=== PATIENT | male | born 1960 | race Caucasian/White ===

== ENCOUNTER 2020-07-12 13:46 | Inpatient (IN) | payer OTHER ==
[~2020-07-12] VITALS: Ht 180.3 cm; Wt 103.9 kg
[~2020-07-12 13:46] MED LIST: ACETAMINOPHEN500 MG PO; ALBUTEROL2.5 MG/31 INH; ASA81BEC PO; BIOTENE ORALBAL42 G1 PO; BUPROPION HCL200 MG PO; COMBIVENT RESPIM4 GM INH; COZAAR 25 MG TA25 M2 PO; CRESTOR5 MG PO; FAMOTIDINE20 MG PO; FLEXERIL PO; FLONASE 0.05%50 MCG NARES; GLUCOPHAGE1000 MG PO; HYDROCHLOROTHIA25 M2 PO; HYDROXYZINE PAM25 M1 PO; JARDIANCE25 MG PO; LIDODERM1 EACH TOP; LOPRESSOR50 MG PO; MELATONIN3 M1 PO; MELOXICAM15 MG PO; MINIPRESS2 MG PO; NEURONTIN 300M300 M2 PO; NICOTINE LOZENGE4 MG PO; OMEPRAZOLE 20 M20 M1 PO; REFRESH CLASSI1 EACH OPHTHALMIC; SALINE NASAL SP88 ML NASAL; TRAMADOL 50 MG50 MG PO; VICTOZA0.6 MG/0.1 SUBQ; VITAMIN D325 MC3 PO; VOLTAREN GEL 1100 G1 TOP; ZYRTEC10 M5 PO; [UNRECOGNIZED DRUG - OTHER] PO
[2020-07-15] MEDS ORDERED: FLEXERIL PO (11:26)
[2020-07-21 13:40] LABS: URINE BILIRUBIN NEGATIVE (Negative); URINE BLOOD NEGATIVE (Negative); URINE CLARITY CLEAR; URINE COLOR YELLOW; URINE GLUCOSE-RANDOM* 3+ (Negative); URINE KETONES NEGATIVE (Negative); URINE LEUKOCYTES-REFLEX NEGATIVE (Negative); URINE NITRITE-REFLEX NEGATIVE (Negative); URINE PROTEIN (DIPSTICK) NEGATIVE (Negative); URINE UROBILINOGEN 0.2 E.U./dl (0.2-1.0)
[2020-07-21 13:45] LABS: EOSINOPHILS 0.9 % (0.0-3.0); HEMATOCRIT 43.3 % (42.0-52.0); HEMOGLOBIN 13.6 gm/dL (14.0-18.0); LYMPHOCYTES 20.9 % (24.0-44.0); MCH 25.3 pg (26.0-34.0); MCHC 31.5 g/dL (28.0-37.0); MCV 80.4 fL (80.0-100.0); PLATELET COUNT 582 thou/uL (150-400); POLYS 69.2 % (36.0-66.0); RBC 5.39 mil/uL (4.50-6.00); RDW 15.3 % (10.5-14.5); WBC 11.5 thou/uL (4.0-11.0)
[2020-07-21 13:54] LABS: ALBUMIN 4.1 g/dL (3.4-5.0); APTT 28.3 Seconds (24.5-32.8); CALCIUM 9.7 mg/dL (8.5-10.1); CREATININE 1.1 mg/dL (0.7-1.3); MAGNESIUM 1.9 mg/dL (1.8-2.4); POTASSIUM 4.1 mmol/L (3.5-5.1); PROTIME 10.2 Seconds (9.3-11.4); TOTAL BILIRUBIN 0.4 mg/dL (0.2-1.0); TOTAL PROTEIN 7.8 g/dL (6.4-8.2)
--- NOTE | 2020-07-21 15:35 | EKG ---
[facility] [place] [address] ELECTROCARDIOGRAM REPORT Name: SELIN PAULINO Room #: PRE IN ..#: [id number] Admission: Attend Phys: Ubaldo Alas MD Discharge: Date of : 56 Report #: [id number] THIS REPORT FOR: cc: CELESTE KLINE Physician not on staff Ja Lao MD [facility] ~ THIS REPORT FOR: //name// [facility] Test Date: 2020-07-21 Test Time: 13:32:32 Pat Name: SELIN PAULINO Department: Room: Gender: Financial Secretary: Shannon HILL : 1960 Requested By: Ubaldo Alas Order Number: [id number] MD: Ja Lao Measurements Intervals [place] Rate: 70 P: 54 MS: 169 QRS: -66 QRSD: 150 T: 39 QT: 422 QTc: 456 Interpretive Statements Sinus rhythm RBBB and LAFB No previous ECG available for comparison Electronically Signed On 07-21-2020 15:35:42 CDT by Ja Lao [email or web address] <ELECTRONICALLY SIGNED> By: Ja Lao MD, FACC 07/21/20 153 31 31 Ja Lao MD, FAC /EPI
[2020-07-22 05:12] LABS: GLYCOHEMOGLOBIN (HGB A1C) 7.7 % (4.8-5.6)
[2020-07-26 07:32] VITALS: BP 125/65
--- NOTE | 2020-07-26 18:50 | NUR ---
assumed care at 1400. pt is a&o x4. pt complains of right foot pain, both back pain, and right eye. Currently we are working on getting his medication. We gave him medication for right eye pain and apply cold wash cloth to his right eye. He felt better. he is on bedrest. fall precaution. call light within reach. he denies any soa. he is pleasant. his breathing is diminished and clear.
--- NOTE | 2020-07-26 19:15 | NUR ---
PATIENT ADMITTED FROM OR WITH LUMBAR FUSION, PATIENT ON BEDREST. PATIENT HAS AQUACEL DRESSING TO LOWBACK AREA. PATIENT HAS POCKET CREASER PUMP STARTED WITH HYDROMORPHONE.
[2020-07-26 20:04] VITALS: BP 153/68
[2020-07-27 00:10] VITALS: BP 109/58
--- NOTE | 2020-07-27 03:58 | NUR ---
SUMAN AT START OF SHIFT 1900. PT A&OX4. RATES PAIN 6/10 AND ON A PROFESSIONAL ATHLETES COACH PUMP AND CAPNEA MONITOR. ON 3L OF 02. EVENING MEDS GIVEN. CALLED PHARMACY TO VERIFY SOME MEDS DUE TO EMAR SET UP. URINAL AT BEDSIDE AND PT VOIDS WELL. SCD'S, TEDHOSE IN PLACE. IV INTACT WITH FLUIDS INFUSING. BSG CHECKED, NO COVERAGE. FALL PREC IN PLACE AND CALL LIGHT IN REACH WILL CONT WITH POC TILL EOS.
[2020-07-27 06:18] LABS: ABSOLUTE NEUTROPHILS 9.9 thou/uL (1.4-8.2); BASOPHILS 0.1 % (0.0-2.0); HEMATOCRIT 38.5 % (42.0-52.0); HEMOGLOBIN 11.7 gm/dL (14.0-18.0); MCH 24.8 pg (26.0-34.0); MCHC 30.5 g/dL (28.0-37.0); MCV 81.4 fL (80.0-100.0); MONOCYTES 11.2 % (1.0-8.0); PLATELET COUNT 379 thou/uL (150-400); POLYS 77.7 % (36.0-66.0); RBC 4.73 mil/uL (4.50-6.00); WBC 12.8 thou/uL (4.0-11.0)
[2020-07-27 06:35] LABS: CALCIUM 9.2 mg/dL (8.5-10.1); CREATININE 1.2 mg/dL (0.7-1.3); POTASSIUM 4.4 mmol/L (3.5-5.1)
[2020-07-27 07:30] VITALS: BP 127/78
--- NOTE | 2020-07-27 09:52 | NUR ---
ASSESSMENT: CM REVIEWED CHART AND SPOKE WITH PT. PT IS ALERT AND ORIENTED X4. PT IS HERE S/P LUMBAR FUSION. PT LIVES IN A MOBILE HOME ON A [place]ARM WITH HIS . PT REPORTS HAVING ABOUT 4 STEPS TO ENTER THE MOBILE HOME WITH HANDRAILS. PT REPORTS THAT HE HAS A WALKER, CANE, AND CRUTCHES AT HOME. PT REPORTS THAT HE ALSO HAS A CPAP. PHYSICAL THERAPY IS WORKING WITH PATIENT AND RECOMMENDING [facility] ONCE DISCHARGED. PT WILL CONTINUE TO WORK WITH THERAPY. CM WILL CONTINUE TO FOLLOW TO ASSIST NEEDED.
--- NOTE | 2020-07-27 16:27 | NUR ---
PT IS AOX4, VSS, PAIN CONTROLLED WITH ORAL AND IV PAIN ANALGESIC. PT IV IS PATENT IN RIGHT HAND WITH FLUIDS RUNNING. PT HAS SIXTO ARANDA, SCD, DRESSING CDI. PT USING URINAL, NO BM BUT PASSING GAS. DENIES N/V, FALL PRECAUTIONS IN PLACE. WILL CONTINUE TO MONITOR.
[2020-07-27 16:30] VITALS: BP 135/58
[2020-07-27 19:21] VITALS: BP 151/85
[2020-07-27 23:39] VITALS: BP 157/135
--- NOTE | 2020-07-28 02:32 | NUR ---
ASSESSED AT START OF SHIFT 1899. PT A&OX4. C/O PAIN AND HICCUPS. MEDS GIVEN SEE EMAR. PT HAD A HUGE BM THIS SHIFT. OLD IV WENT BAD. NEW IV 22G INSERTED IN RT FA. IV FLUIDS INFUSING. TYLENOL GIVEN FOR TEMP. PT UP WITH ASSIST WITH WALKER. AQUACEL DRESSING IN LOWER BACK WITH MINIMAL DRAINAGE. FALL PREC IN PLACE CALL LIGHT IN REACH WILL CONT TO MONITOR.
[2020-07-28 02:51] LABS: URINE CLARITY CLEAR; URINE COLOR YELLOW; URINE SPECIFIC GRAVITY 1.015 (1.005-1.035)
[2020-07-28 02:52] LABS: URINE BILIRUBIN NEGATIVE (Negative); URINE BLOOD NEGATIVE (Negative); URINE GLUCOSE-RANDOM* 3+ (Negative); URINE KETONES NEGATIVE (Negative); URINE LEUKOCYTES NEGATIVE (Negative); URINE NITRITE NEGATIVE (Negative); URINE PROTEIN (DIPSTICK) NEGATIVE (Negative); URINE UROBILINOGEN 0.2 E.U./dl (0.2-1.0)
[2020-07-28 03:47] VITALS: BP 131/46
[2020-07-28 07:30] VITALS: BP 159/92
[2020-07-28 09:17] LABS: HEMATOCRIT 31.8 % (42.0-52.0); HEMOGLOBIN 10.2 gm/dL (14.0-18.0); MCH 25.7 pg (26.0-34.0); MCV 80.3 fL (80.0-100.0); RBC 3.96 mil/uL (4.50-6.00); RDW 15.6 % (10.5-14.5); WBC 9.5 thou/uL (4.0-11.0)
[2020-07-28 09:27] LABS: CALCIUM 8.9 mg/dL (8.5-10.1); MAGNESIUM 1.7 mg/dL (1.8-2.4); POTASSIUM 4.2 mmol/L (3.5-5.1)
[2020-07-28 14:53] VITALS: BP 139/62
--- NOTE | 2020-07-28 15:43 | NUR ---
ON-GOING ASSESSMENT: CM REVIEWED CHART. PT IS PROGRESSING TOWARDS DISCHARGE GOALS. PLANS ON POSSIBLE DISCHARGE TOMORROW AM IF PT REMAINS AFEBRILE. CM WILL CONTINUE TO FOLLOW TO ASSIST NEEDED.
--- NOTE | 2020-07-28 17:53 | NUR ---
PT IS AOX4, VSS, PAIN CONTROLLED WITH ORAL ANALGESIC ORDERED. PT DRESSING WAS CHANGED ON BACK/CDI AT THIS TIME. PT UP TO RECLINER, WORKING WITH PT/OT WELL. APPETITE IS FAIR, NO N/V NOTED. FALL PRECAUTIONS IN PLACE, CALLS APPROPRIATELY. IV PATENT WITH FLUIDS, WILL CONTINUE TO MONITOR.
[2020-07-28 20:13] VITALS: BP 144/78
--- NOTE | 2020-07-29 02:50 | NUR ---
ASSESSED AT START OF SHIFT. PT A&OX4. TRAMADOL GIVEN FOR PAIN. PT UP WITH SBA TO THE BATHROOM. NO FEVER THIS SHIFT. ANTICIPATING D/C TOMORROW. IV INTACT AND SL OPHELIA PO FLUIDS. LOWER BACK DRESSING CHANGED. C/D/I. THORAZINE GIVEN FOR HICCUPS. PT RESTING WELL. FALL PREC IN PLACE AND CALL LIGHT IN REACH YEIMY CONT TO MONITOR.
[2020-07-29 04:10] VITALS: BP 105/81
[2020-07-29 05:39] LABS: HEMATOCRIT 34.5 % (42.0-52.0); HEMOGLOBIN 10.7 gm/dL (14.0-18.0); MCH 25.2 pg (26.0-34.0); MCHC 31.1 g/dL (28.0-37.0); MCV 81.1 fL (80.0-100.0); RBC 4.26 mil/uL (4.50-6.00); RDW 15.9 % (10.5-14.5); WBC 9.7 thou/uL (4.0-11.0)
[2020-07-29 05:44] LABS: CALCIUM 9.4 mg/dL (8.5-10.1); CREATININE 0.9 mg/dL (0.7-1.3); POTASSIUM 3.9 mmol/L (3.5-5.1)
--- NOTE | 2020-07-29 07:19 | NUR ---
ASSUMED CARE OF PATIENT. HE IS ASLEEP WEARS C-PAP AT NIGHT. NO PAIN OR RESP DISTRESS.
[2020-07-29 07:28] VITALS: BP 135/71
[2020-07-29 13:08] VITALS: BP 135/71
[2020-07-29 13:20] VITALS: BP 142/84
--- NOTE | 2020-07-29 14:36 | NUR ---
ON-GOING ASSESSMENT: CM REVIEWED CHART AND SPOKE WITH ATTENDING. PT IS STABLE TO DISCHARGE HOME TODAY WITH HOME HEALTH. CM MET WITH PATIENT AND HE HAS NO PREFERENCE OF AGENCY AND STATES WE JUST NEED TO GET APPROVAL FROM THE [facility]. CM REACHED OUT TO [facility] [phone] AND REFERRAL WAS SENT TO [facility] IN [place], [place]. CM RECEIVED A CALL BACK FROM PRAKASH AT [facility] WHO REPORTS THEY CAN ACCEPT PT JUST NEED APPROVAL FROM THE [facility]. CM NOTIFIED HER THAT CM SPOKE WITH THE [facility] AND THEY HAVE AUTHORIZED THIS AND ARE GOING TO CONTACT HER TO CONFIRM THE AUTHORIZATION. CM FAXED [facility] THE DISCHARGE ORDERS AND CONFIRMED THEY RECEIVED THEM. CM ALSO NOTIFIED THE [facility] THAT PATIENT IS REQUESTING A STOOL RISER AND THEY REPORT THAT HAS TO GO THROUGH THEIR [employer] AND THEY ARE PUTTING IN A REFERRAL/REQUEST FOR THAT AND WILL FOLLOW UP WITH THE PT. CM NOTIFIED [facility] THAT PT PLANS ON STAYING AND HIS IN-LAWS FOR 1-2 WEEKS SINCE IT IS SENIOR FRIENDLY INCLUDING NO STEPS AND HAS GRAB BARS AT [address] [id number]. CM NOTIFIED PT THAT [facility] WOULD BE CONTACTING HIM. PT REPORTS NO FURTHER NEEDS FROM AT THIS TIME. CASE CLOSED.
--- NOTE | 2020-07-29 14:56 | NUR ---
PT ARRIVED ON UNIT AT 1320 PT CRYING AND MOANING STATES IM HUNGRY GAVE FOOD AFTER DIET CHANGED AND DINNER ORDERED. V.S 97.8 18 82 142/84 O2 SAT= 99 % RA. GIVEN PO AND IV PRN PAIN MEDS.ADMISSION PAPERWORK DONE WITH PATIENT IN THE COMPUTER.
[2020-07-29 15:33] VITALS: BP 135/71
[2020-07-29 18:00] VITALS: BP 135/71
--- NOTE | 2020-07-29 18:05 | NUR ---
DISCHARGE PAPERS REVIEWED WITH PATIENT AND HIS SPOUSE SIGNED AND COPY IN CHART IV ACSESS DCD. RX AND WOUND SUPPLIES SENT WITH PATIENT. PT WAS GIVEN LOMOTIL GIVEN XS1 THEN 30 MIN AFTER 1ST DOSE PER [facility] ORDERS. GIVEN PRN PAIN MED REQUESTED TAKEN VIA W/C TO [facility]ILY [facility]. ALL BELONGINGS TAKEN WITH PATIENT.
--- NOTE | 2020-07-31 06:48 | O ---
[facility] [place] [address] OPERATIVE REPORT Name: ESLIN PAULINO Room #: 437-P [facility] IN M.R.#: [id number] Admission: 07/26/20 Attend Phys: Ubaldo Alas MD Discharge: 07/29/20 Date of : 56 Report #: [id number] THIS REPORT FOR: cc: CELESTE KLINE Physician not on staff Ubaldo Alas MD ~ CC: Ubaldo Alas Physician staff CELESTE KLINE DATE OF SERVICE: 07/26/2020 IDENTIFYING DATA: He is a 60-year-old male. PREPROCEDURAL DIAGNOSES: Degenerative disk disease, L3-L4 spinal stenosis; L4-L5 severe spinal stenosis; L4-L5 spondylolisthesis; L4-L5 instability; L5-S1 neural foraminal stenosis, radiculopathy. Neurogenic claudication of the spinal nerve roots. Low back pain. POSTPROCEDURAL DIAGNOSIS: Degenerative disk disease, L3-L4 spinal stenosis; L4-L5 severe spinal stenosis; L4-L5 spondylolisthesis; L4-L5 instability; L5-S1 neural foraminal stenosis, radiculopathy. Neurogenic claudication of the spinal nerve roots. Low back pain. PROCEDURE PERFORMED: Posterior instrumentation, L4-L5; transforaminal lumbar interbody fusion, L4-L5; L4-L5 insertion of interbody prosthesis; bilateral laminectomy with partial facetectomy and neural foraminotomy L3; bilateral laminectomy with partial facetectomy and neural foraminotomy L4; bilateral laminectomy with partial facetectomy and neural foraminotomy L5; bilateral laminectomy with partial facetectomy and neural foraminotomy S1; autograft local bone graft harvest; synthetic/allograft bone for posterolateral fusion. Fluoroscopy time less than 1 hour. SURGEON: Ubaldo Alas MD PLANT ENGINEERING MANAGER SURGEON: Sarah Kingsley. ANESTHESIA: General via endotracheal tube. INDICATIONS FOR PROCEDURE: The patient has had intractable back and bilateral leg pain. It is in a neurogenic claudicant and radicular pattern. He has proved refractory to all forms of multimodality conservative management. In addition to the three level stenosis L3-L4, L4-L5 and L5-S1, he has a mobile spondylolisthesis at L4-L5. The patient has proved refractory to all forms of multimodality conservative managements requesting we proceed with operative intervention. [address] [address] OPERATIVE REPORT Name: SELIN PAULINO Room #: 437-P DIS IN ..#: [id number] Admission: 07/26/20 Attend Phys: Ubaldo Alas MD Discharge: 07/29/20 Date of : 56 Report #: [id number] The patient understands the risks of surgery to be , DVT, pulmonary embolism, paraplegia, loss of bowel and bladder function, loss of sexual function, possibility of bleeding, bleeding requiring transfusion, transfusion attendant risks of AIDS and hepatitis infection, dural leak, spinal headache, and again he understood the chance of adjacent level breakdown to the L4-L5 level. DESCRIPTION OF PROCEDURE: The patient was brought to the operating room and administered general anesthesia via endotracheal tube. Lower extremities were treated with SIXTO hose and intermittent compression stockings. The patient was positioned on the Jon table in the prone position with all bony prominences were padded appropriately. His Templeton catheter had been placed. He received perioperative Ancef. In a neck neutral position and all arms positioned so that there was no abduction of the shoulders beyond 90 degrees, no flexion of the elbows beyond 90 degrees and no pressure on the anterior superior iliac spine, the patient's low back was defatted with alcohol and visualized under fluoroscopy and the pedicles of L3 through S1 were marked on the patient's back for surgical reference. We then were able to sterilely prep and drape, infiltrate the skin with 0.5% Marcaine, 1:200,000 epinephrine and sharp dissection was continued down through the skin, the subcutaneous tissues to the level of the deep fascia. At the level of the deep fascia, the tips of the spinous processes of L3, L4, L5 and S1 were subperiosteally exposed and a subperiosteal exposure ensued maintaining the facet capsules at all levels with the exception of the L4-L5 level. We placed a clamp on what we believed to be the spinous process of L4 and L5. We placed it perpendicular to the floor. This did give us our relative direction of the pedicles in relationship to the clamps. Fluoroscopy demonstrated that we were in fact at the L4-L5 level. The transverse processes of L4 and L5 were exposed. We then decorticated the base of the transverse process in line with the lateral facet, inserted a pedicle probe, drilled it to a depth of 40 mm, withdrew the probe, palpated the hole to ensure cortical integrity in all 4 quadrants and when this was assured, we placed bone wax and a metallic marker. With markers placed bilaterally at L4 and L5, we e brought fluoroscopy back into the field, imaged to ensure our markers were in good position. They appeared to be in excellent position within the pedicles. We sequentially removed each marker. We tapped the hole, palpated the hole with a ball tip probe, but before insertion of the screw, we decorticated posterolaterally on the transverse processes and packed synthetic bone that had been reconstituted with the patient's vertebral body blood that was being harvested during the pedicle hole site. The blood was harvested in a Lukens trap while the pedicle hole was being fashioned and then the ____ was soaked in the vertebral body blood rich in stem cells before being packed in the posterolateral gutter. The posterolateral fusion packing complete on L3. We inserted the screw, moved down and tapped the hole of L4 and inserted and decorticated placing the synthetic bone on the L4 transverse process, affecting a posterolateral fusion. With the posterolateral fusion complete at L3-L4, we [address] [address] OPERATIVE REPORT Name: SELIN PAULINO Room #: 437-P [facility] IN M.R.#: [id number] Admission: 07/26/20 Attend Phys: Ubaldo Alas MD Discharge: 07/29/20 Date of : 56 Report #: [id number] then inserted the screws, measured, cut and contoured the rods, reduced the spondylolisthesis at L4-L5 to anatomic. With the screws and rods in place on the right, we moved to the left and performed exactly the same procedure again. We tapped the hole, palpated the hole to ensure cortical integrity, decorticated, placed the reconstituted synthetic bone in the posterolateral gutter affecting a posterolateral fusion intertransverse from L4-L5. We then inserted the screws, measured, cut and contoured the rods and locked the construct and fit wide transverse connector. We set the transverse connector aside for later use. We then turned our attention to the spine. We did check an AP and lateral fluoroscopy view and it showed that his pedicle screws were in excellent position, the appropriate length and trajectory and that the spondylolisthesis had been reduced. With the spondylolisthesis reduced to anatomic, we now cleaned the interlaminar spaces at L3-L4, L4-L5 and L5-S1. We then removed the spinous processes of the superior S1, L5, L4 and the majority of L3. We then thinned the laminas of the L3, L4, L5 and S1 to allow a wide decompressive laminectomy to ensure neural foraminal decompressions at the L3-L4, L4-L5 and L5-S1 levels. This was done for stenosis and not just for placement of the cage at L4-L5, so decompression for spinal stenosis bilateral at L3, L4, L5 and S1. We then turned our attention to the lateral recesses. We performed partial facetectomies and then this was followed by aggressive neural foraminal decompressions with the most severe compression being noted at the L4-L5 level. We then turned to the left side and performed wide decompressive laminectomies to the edge of the spinal sac and then performed partial facetectomies to free up the lateral recesses and then neural foraminal decompressions again of L3, L4, L5 and S1 nerve roots. With the nerve roots probing completely free, we copiously irrigated with a liter of antibiotic-containing solution. We completed a total right-sided laminectomy as this was the majority of the patient's symptoms on the L4 level and then gently mobilized the spinal sac and performed an annular window with a 15 blade on a long handle and then a pituitary, removed disk material until we had a complete diskectomy at the L4-L5 level. We then used sunni up to a 10 mm size to achieve removal of the disk and cartilaginous endplate at the L4-L5 level. We then inserted 5 mL of the patient's own bone. The patient's local bone from the laminectomy had been meticulously cleaned. It was morcellized in the bone mill and it was placed in a funnel and placed in the disk space, followed by the expandable cage. The cage was inserted and then expanded to allow foraminal reexpansion to relieve further foraminal compression at the L4-L5 level. We then compressed and locked the construct. This was followed by final x-ray, which showed excellent position of the interbody prosthesis, clearly restored disk height and neural foramen that were now widely open at L4-L5. The spine remained anatomically reduced at L4-L5. We drilled out the facet on the patient's left at L4-L5 and performed a posterior interfacet fusion with remaining autograft. Then, we augmented the posterolateral fusion with remaining autograft, so we had both synthetic bone and autograft in the posterolateral gutters. With the 3 points of the fusion complete, interbody, posterolateral, and interfacet, we copiously irrigated with a liter of [facility] [address] [place] [address] OPERATIVE REPORT Name: SELIN PAULINO Room #: 437-P [facility] IN ..#: [id number] Admission: 07/26/20 Attend Phys: Ubaldo Alas MD Discharge: 07/29/20 Date of : 56 Report #: [id number] antibiotic-containing solution. We placed pledgets thrombin-soaked Gelfoam over the spinal canal. We had packed the inner facet region at L4-L5. We applied a transverse connector and torqued all fittings to appropriate tightness. We obtained meticulous hemostasis. We closed the deep fascial layer with 0 Ethibond in [id number] interrupted fashion with deep subcu with 0 Vicryl, superficial subcu with 2-0 Vicryl, skin with subcuticular 3-0, dressed it with benzoin, Steri-Strips, Xeroform, sterile dressing, sponges and a bioclusive. The patient tolerated the procedure well. There were no technical misadventures and he was being transported to recovery room for closer neurovascular observation, continue prophylactic antibiotic and serial neurovascular exams. I would also note that a gram of vancomycin was placed in the patient's wound. With the patient physiologically stable without technical misadventures with 100 mL blood loss, and the patient being physiologically stable, he was transported to the recovery room again for closer neurovascular observation, continue prophylactic antibiotic and discharge to the floor when stable. <ELECTRONICALLY SIGNED> By: Ubaldo Alas MD 07/31/20 [id number] Ubaldo Alas MD /nt
== END 2020-07-29 18:08 | disposition home health service (06) | DRG 459 ==
LOC: PRE → 4S 07-26 05:58 → TBA 07-26 05:58 → PRE 07-26 12:30 → 4S 07-26 16:12
PROVIDERS: Internal Medicine; Nurse Practitioner
PROC: 01NB0ZZ Release Lumbar Nerve, Open Approach (ICD-10-PCS; principal; 2020-07-26)
PROC: 01NR0ZZ Release Sacral Nerve, Open Approach (ICD-10-PCS; principal; 2020-07-26)
PROC: 0SG10AJ Fusion of 2 or more Lumbar Vertebral Joints with Interbody Fusion Device, Posterior Approach, Anterior Column, Open Approach (ICD-10-PCS; principal; 2020-07-26)
DX: M48.062 Spinal stenosis, lumbar region with neurogenic claudication (principal); J96.01 Acute respiratory failure with hypoxia; M43.16 Spondylolisthesis, lumbar region; I10 Essential (primary) hypertension; E78.5 Hyperlipidemia, unspecified; J44.9 Chronic obstructive pulmonary disease, unspecified; G47.33 Obstructive sleep apnea (adult) (pediatric); G89.29 Other chronic pain; M54.9 Dorsalgia, unspecified; F32.9 Major depressive disorder, single episode, unspecified; F41.9 Anxiety disorder, unspecified; K21.9 Gastro-esophageal reflux disease without esophagitis; E11.9 Type 2 diabetes mellitus without complications; F17.220 Nicotine dependence, chewing tobacco, uncomplicated; K59.00 Constipation, unspecified; M51.16 Intervertebral disc disorders with radiculopathy, lumbar region; E66.9 Obesity, unspecified; Z68.32 Body mass index [BMI] 32.0-32.9, adult; Z88.6 Allergy status to analgesic agent; Z88.3 Allergy status to other anti-infective agents; Z88.2 Allergy status to sulfonamides; Z88.8 Allergy status to other drugs, medicaments and biological substances; Z79.82 Long term (current) use of aspirin; Z79.899 Other long term (current) drug therapy
CPT/HCPCS: 10102; 50010; 50101; 50402; 50850; 50923; 51878; 56524; 56526; 56529; 58246; 58247; 58248; 58251; 58258; 5828; 58334; 62110; 62900; 70005

== ENCOUNTER → 2020-07-21 | Outpatient (CLI) | payer OTHER | LOC: LAB 13:35 | DX: Z20.828 Contact with and (suspected) exposure to other viral communicable diseases (principal) ==

== ENCOUNTER 2020-08-02 04:58 | Inpatient (IN) | payer OTHER ==
[~2020-08-02] VITALS: Ht 180.3 cm; Wt 105.2 kg
[2020-08-02 09:29] LABS: ABSOLUTE NEUTROPHILS 6.1 thou/uL (1.4-8.2); BASOPHILS 0.8 % (0.0-2.0); EOSINOPHILS 5.3 % (0.0-3.0); HEMATOCRIT 31.3 % (42.0-52.0); HEMOGLOBIN 9.9 gm/dL (14.0-18.0); LYMPHOCYTES 6.7 % (24.0-44.0); MCH 25.3 pg (26.0-34.0); MCHC 31.5 g/dL (28.0-37.0); MCV 80.2 fL (80.0-100.0); MONOCYTES 11.1 % (1.0-8.0); PLATELET COUNT 299 thou/uL (150-400); POLYS 76.1 % (36.0-66.0); RDW 15.8 % (10.5-14.5)
[2020-08-02 10:14] LABS: ALBUMIN 2.4 g/dL (3.4-5.0); CALCIUM 8.6 mg/dL (8.5-10.1); MAGNESIUM 2.1 mg/dL (1.8-2.4); POTASSIUM 4.5 mmol/L (3.5-5.1); TOTAL BILIRUBIN 0.3 mg/dL (0.2-1.0); TOTAL PROTEIN 6.5 g/dL (6.4-8.2)
[2020-08-02 15:40] VITALS: BP 153/71
[2020-08-02 15:52] LABS: URINE BILIRUBIN NEGATIVE (Negative); URINE BLOOD NEGATIVE (Negative); URINE CLARITY CLEAR; URINE COLOR YELLOW; URINE GLUCOSE-RANDOM* 2+ (Negative); URINE KETONES 2+ (Negative); URINE LEUKOCYTES-REFLEX NEGATIVE (Negative); URINE NITRITE-REFLEX NEGATIVE (Negative); URINE PROTEIN (DIPSTICK) NEGATIVE (Negative); URINE UROBILINOGEN 0.2 E.U./dl (0.2-1.0)
--- NOTE | 2020-08-02 19:45 | NUR ---
Received pt as a direct admit, IV in place patent. NPO initially went for lumbar MRI. IV and medications restarted and placed on a regualr diet. Diet adn medicatiosn are tolerated well. POC followed , with no signs or verbalizations of distress noted, ambulates with a steady gait calls appropriately. Endorsed to the night nurse.
[2020-08-02 20:43] VITALS: BP 147/46
--- NOTE | 2020-08-03 03:54 | NUR ---
VSS-AFEBRILE. LUNGS CLEAR-ROOM AIR. CPAP WORN OVERNIGHT WHILE SLEEPING. C/O LOWER BACK PAIN THAT IS PARTIALLY RELIEVED WITH PO TRAMADOL. LUMBAR DRESSING HAS SMALL AMOUNT OF SHADOW DRAINAGE. OOB WITH SBA, STEADY ON FEET. FALL PRECAUTIONS IN PLACE, CALLS APPROPRIATELY FOR ANY NEEDED ASSISTANCE.
[2020-08-03 06:01] LABS: ABSOLUTE NEUTROPHILS 3.9 thou/uL (1.4-8.2); BASOPHILS 0.4 % (0.0-2.0); EOSINOPHILS 9.2 % (0.0-3.0); HEMATOCRIT 31.6 % (42.0-52.0); HEMOGLOBIN 9.9 gm/dL (14.0-18.0); LYMPHOCYTES 26.2 % (24.0-44.0); MCH 25.3 pg (26.0-34.0); MCHC 31.3 g/dL (28.0-37.0); MCV 80.6 fL (80.0-100.0); MONOCYTES 9.2 % (1.0-8.0); PLATELET COUNT 327 thou/uL (150-400); RBC 3.92 mil/uL (4.50-6.00); RDW 15.7 % (10.5-14.5); WBC 7.1 thou/uL (4.0-11.0)
[2020-08-03 06:28] LABS: CALCIUM 8.7 mg/dL (8.5-10.1); CREATININE 0.9 mg/dL (0.7-1.3); MAGNESIUM 1.9 mg/dL (1.8-2.4)
[2020-08-03 06:31] LABS: POTASSIUM 3.5 mmol/L (3.5-5.1)
[2020-08-03 07:57] VITALS: BP 125/61
--- NOTE | 2020-08-03 12:22 | NUR ---
PT ADMITTED RELATED TO INFECTION ON SURGICAL SITE. CM REVIEWED CHART AND SPOKE WITH CARE TEAM. CM CALLED AND SPOKE WITH PT OVER THE PHONE THIS DAY. PT APPEARED TO BE A&O X4. CM ROLE INTRODUCED. PT HAD DISCHARGED FROM HERE 07/19/[address] [facility] WITH [facility]. PT INDICATED THAT HE ANTICIPATES RETURNING TO THEIR HOME AND RESUMING SERVICES WITH [facility] ONCE MEDICALLY STABLE. PT IS ON IV ABX AT THIS TIME. CM TO FOLLOW INDICATED WITH DC PLANNING.
--- NOTE | 2020-08-03 12:32 | NUR ---
Alert and orientated X4. Calm, cooperative and conversive. Up ambulating X1 with gait belt. Breath sounds clear t/o. Reg HR auscultated. Color pink with brisk capillary refill and palpable peripheral pulses. IV per R hand soft and flat w/o s/o infiltration or infection. Clear yellow urine per urinal. Active bowel sounds over soft, rounded abdomen. Gait steady and regular. No s/o distress. visiting at this time.
--- NOTE | 2020-08-03 13:51 | NUR ---
Nutrition: screen for nsg risk. Wt up from admit last week. Albumin low. BG 78-157. Meds: metformin, statin, pepcid, insulin. Intake 100%. Hx of HTN, HLD, COPD, DM. Assessed at low nutrition risk. Rec CHO controlled diet.
[2020-08-03 15:27] VITALS: BP 144/88
[2020-08-03 20:02] VITALS: BP 180/70
[2020-08-04] MEDS ORDERED: BACTRIM DS TAB1 EAC1 PO (08:12)
[2020-08-04 08:50] VITALS: BP 147/72
[2020-08-04 09:08] VITALS: BP 147/72
--- NOTE | 2020-08-04 09:09 | NUR ---
CARE TEAM INDICATED THAT PT IS MEDICALLY STABLE TO DISHCARGE HOME THIS DAY. PT IS TO CHANGE TO PO ABX. PHYSICIAN INDICATED THAT PT IS SAFE TO DC HOME TO SELF CARE. CM CALLED AND SPOKE WITH PT AND HE CONFIRMED THAT HE DIDN'T FEEL HE NEEDED RESUMPTION OF [facility] UPON THIS DISHCARGE. HE FELT SAFE TO DC HOME TO SELF CARE. NO OTHER CM INTERVENTION INDICATED. PT STATED HE HAD TRANSPORT HOME THIS AM. CASE CLOSED.
[2020-08-04 09:34] VITALS: BP 147/72
--- NOTE | 2020-08-04 12:11 | NUR ---
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 Saline lock and tele dc'd.Tramadol given prior to pt dc home at 1208 per wc accompanied by data analysis assistant.
== END 2020-08-04 12:17 | disposition home or self-care (01) | DRG 862 ==
LOC: 4W 04:58
PROVIDERS: Nurse Practitioner; ADMIT Internal Medicine; ATTEND Internal Medicine
PROC: 5A09357 Assistance with Respiratory Ventilation, Less than 24 Consecutive Hours, Continuous Positive Airway Pressure (ICD-10-PCS; principal; 2020-08-03)
DX: T81.40XA Infection following a procedure, unspecified, initial encounter (principal); E43 Unspecified severe protein-calorie malnutrition; L03.312 Cellulitis of back [any part except buttock and flank]; M54.16 Radiculopathy, lumbar region; M48.061 Spinal stenosis, lumbar region without neurogenic claudication; M51.36 Other intervertebral disc degeneration, lumbar region; M54.9 Dorsalgia, unspecified; I10 Essential (primary) hypertension; E78.5 Hyperlipidemia, unspecified; J44.9 Chronic obstructive pulmonary disease, unspecified; G47.33 Obstructive sleep apnea (adult) (pediatric); E11.9 Type 2 diabetes mellitus without complications; F32.9 Major depressive disorder, single episode, unspecified; F41.9 Anxiety disorder, unspecified; G89.29 Other chronic pain; E66.9 Obesity, unspecified; K59.00 Constipation, unspecified; R41.0 Disorientation, unspecified; Y83.8 Other surgical procedures as the cause of abnormal reaction of the patient, or of later complication, without mention of misadventure at the time of the procedure; Z88.1 Allergy status to other antibiotic agents; Z88.2 Allergy status to sulfonamides; Z88.8 Allergy status to other drugs, medicaments and biological substances; Z87.891 Personal history of nicotine dependence; Z68.32 Body mass index [BMI] 32.0-32.9, adult; Y92.89 Other specified places as the place of occurrence of the external cause
CPT/HCPCS: 10045

== ENCOUNTER → 2020-08-22 | Outpatient (CLI) | payer OTHER ==
[~2020-08-22] MED LIST changes: +BACTRIM DS TAB1 EAC1 PO
== END ==
LOC: RAD 14:30
DX: M54.5 Low back pain (principal); Z98.890 Other specified postprocedural states